=== PATIENT | male | born 1990 | race Caucasian/White ===

== ENCOUNTER 2017-10-27 18:25 | Inpatient (IN) | payer OTHER ==
[~2017-10-27] VITALS: Ht 167.6 cm; Wt 77.1 kg
--- NOTE | 2017-10-27 18:48 | ED SKIN/ALLERGY COMPLAINT ---
History of Present Illness General Chief Complaint: Skin Rash/ Abcess Stated Complaint: ABSCESS ON ARM Source: patient Exam Limitations: no limitations Vital Signs & Intake/Output Vital Signs & Intake/Output Vital Signs Date Time Temp Pulse Resp B/P B/P Pulse O2 O2 Flow FiO2 Mean Ox Delivery Rate 10/27 2106 Room Air 10/27 1836 98.8 102 15 138/79 98 Room Air Room Air Allergies Coded Allergies: No Known Allergies (10/27/17) Reconcile Medications Methadone HCl (Methadose) 10 MG/ML ORAL.CONC 90 MG PO DAILY MENTAL HEALTH ( Reported) Triage Note: PT TO ED FOR C/C OF R ARM ABCESS. PT REPORTS HE USED IV HEROIN LAST WEEK. WENT TO THE WALK IN AND STARTED ON PO BACTRIM 2 DAYS AGO. PT'S R ARM VERY RED, HOT, SWOLLEN WITH NOTICEABLE ABCESS WITH REDNESS AND INDURATION IN TRIAGE. AFEBRILE, DENIES FEVERS AT HOME. WOULD NOT LIKE VISITORS TO KNOW WHY PT IS HERE. Triage Nurses Notes Reviewed? yes Onset: Abrupt Duration: day(s):, constant Timing: recent history Severity: moderate, severe No Modifying Factors: none HPI: 27-year-old male comes into the emergency room for further evaluation of pain and swelling to his right elbow. Patient reports that he does inject IV drugs. He did inject recently over this area. Denies any chances of foreign body with needle. He reports it started off as a small bump and then got progressively larger and more swollen. He was seen at walk-in clinic and started on Bactrim. He reports that the swelling is just continuing to increase and he cannot bend his elbow. Denies any fever or vomiting. Denies any other associated symptoms. (Ancelmo Haji) Past History Travel History Traveled to [place] past 21 day No Medical History Any Pertinent Medical History? see below for history Neurological: NONE EENT: NONE Cardiovascular: NONE Respiratory: NONE Gastrointestinal: NONE Hepatic: NONE Renal: NONE Musculoskeletal: NONE Psychiatric: NONE Endocrine: NONE Blood Disorders: NONE Cancer(s): NONE MISSILEMAN/Reproductive: NONE Surgical History Surgical History: non-contributory Psychosocial History What is your primary language Frisian Tobacco Use: Current Daily Use Daily Tobacco Use Amount/Type: => 5 Cigarettes daily ETOH Use: denies use Illicit Drug Use: denies illicit drug use Family History Hx Contributory? No (Ancelmo Haji) Review of Systems Review of Systems Constitutional: Reports: no symptoms. EENTM: Reports: no symptoms. Respiratory: Reports: no symptoms. Cardiovascular: Reports: no symptoms. GI: Reports: no symptoms. Genitourinary: Reports: no symptoms. Musculoskeletal: Reports: no symptoms. Skin: Reports: see HPI. Neurological/Psychological: Reports: no symptoms. Hematologic/Endocrine: Reports: no symptoms. Immunologic/Allergic: Reports: no symptoms. All Other Systems: Reviewed and Negative (Ancelmo Haji) Physical Exam Physical Exam General Appearance: well developed/nourished, mild distress Head: atraumatic Eyes: Bilateral: normal appearance. Ears, Nose, Throat: normal ENT inspection, hearing grossly normal Neck: normal inspection Respiratory: no respiratory distress Back: normal inspection Extremities: normal inspection, normal range of motion, no edema Neurologic/Psych: awake, alert, oriented x 3, normal mood/affect Skin: intact Skin Problem Location: upper extremities Skin Problem Character: fluctuance and swelling to right antecubital fossa, warmth, large surrounding area of erythema and warmth, extending up arm and down arm, induration, severe limited range of motion, radial pulses 2+, (Ancelmo Haji) Progress Differential Diagnosis: abscess/cellulitis, septic joint, foreign body, sepsis, Plan of Care: Orders Procedure Date/time Status Regular Diet 10/28 B Active URINE DRUGS OF ABUSE 10/27 2149 Active ED Holding Orders 10/27 2123 Active Admit to inpatient 10/27 2123 Active Vital Signs 10/27 2123 Active Code Status 10/27 2123 Active EXTREMETIES CULTURE 10/27 2027 Active BLOOD CULTURE 10/27 1911 Active LACTIC ACID 10/27 1911 Complete C-REACTIVE PROTEIN 10/27 1911 Complete COMPREHENSIVE METABOLIC PANEL 10/27 1911 Complete CBC WITHOUT DIFFERENTIAL 10/27 1911 Complete Current Medications Sig/Rory Start time Last Medication Dose Stop Time Status Admin Sodium Chloride 1,000 ML BOLUS ONE 10/27 2129 AC (Normal Saline 0.9%) 10/27 2228 Laboratory Tests 10/27/171942: Anion Gap 14, Estimated GFR > 60, BUN/Creatinine Ratio 14.0, Glucose 103 H, Lactic Acid 0.8, Calcium 9.3, Total Bilirubin 0.2, AST 19, ALT 29, Alkaline Phosphatase 82, C-Reactive Prot, Quant > 9.0 H, Total Protein 7.6, Albumin 4.4, Globulin 3.2, Albumin/Globulin Ratio 1.4, CBC w Diff NO MAN DIFF REQ, RBC 4.38 L, MCV 90.0, MCH 29.5, MCHC 32.8 L, RDW 13.7, MPV 7.9, Gran % 83.0 H, Lymphocytes % 10.4 L, Monocytes % 5.8, Eosinophils % 0.8, Basophils % 0, Absolute Granulocytes 11.3 H, Absolute Lymphocytes 1.4, Absolute Monocytes 0.8 H, Absolute Eosinophils 0.1, Absolute Basophils 0 Microbiology 10/27 2029 EXTREMITIE: Culture & Sensitivity - RECD 10/27 2029 EXTREMITIE: Gram Stain - RECD 10/27 1952 BLOOD: Blood Culture - RECD 10/27 1942 BLOOD: Blood Culture - RECD Diagnostic Imaging: Viewed by Me: Radiology Read. Discussed w/RAD: Radiology Read. Radiology Impression: PATIENT: DUDLEY FORTUNE PRESENT AGE: 27 PATIENT ACCOUNT NO: [id number] : 91 LOCATION: [facility] ORDERING PHYSICIAN: Ancelmo JONES SERVICE DATE: 10/27/17 EXAM TYPE : RAD - XRY-ELBOW 3 OR MORE VIEWS, R EXAMINATION: XR ELBOW, RIGHT CLINICAL INFORMATION: Assess for foreign body right arm. Drug use. COMPARISON: None TECHNIQUE: 4 plain film views of the right elbow. FINDINGS: There is diffuse soft tissue swelling about the right elbow. I do not appreciate any significant joint effusion however. No radiopaque foreign body seen. No acute fracture or dislocation. No bony destructive lesions. IMPRESSION: Diffuse soft tissue swelling but no acute bony abnormality or joint effusion. DICTATED BY: Dudley Mullins MD DATE/TIME DICTATED:10/27/171955 DUST BOX WORKER: SHANTI DATE/TIME TRANSCRIBED:10/27/171955 CONFIDENTIAL, DO NOT COPY WITHOUT APPROPRIATE AUTHORIZATION. <Electronically signed in Other Vendor System> SIGNED BY: Dudley Howard MD 10/27/172000 (Tomi JONES,Ancelmo) Departure Departure Disposition: STILL A PATIENT Condition: Stable Clinical Impression Primary Impression: Cellulitis and abscess of upper arm and forearm Referrals: Corina VAZQUEZ,Noe [place] (PCP/Family) Departure Forms: Customer Survey General Discharge Information Admission Note Spoke With: Lenard VAZQUEZ,Anjelica Documentation of Exam: Documentation of any treatments & extenuating circumstances including Concerns Regarding Discharge (functional status, medication knowledge or non-compliance, living conditions, etc.) that warrant an admission rather than observation: Patient has failed outpatient treatment with oral antibiotics. Patient will require IV antibiotics. Wound care. Surgical consultation. Patient may require possible further drainage of abscess in operating room. High risk. Medically not safe for discharge. spoke with dr pardo who will consult tomorrow. (Ancelmo Haji) PA/DEPENDENCY DIRECTOR Co-Sign Statement Statement: ED Attending supervision documentation- [X] I saw and evaluated the patient. I have also reviewed all the pertinent lab results and diagnostic results. I agree with the findings and the plan of care as documented in the PA's/DEPENDENCY DIRECTOR's documentation. [X] I have reviewed the ED Record and agree with the PA's/DEPENDENCY DIRECTOR's documentation. [] Additions or exceptions (if any) to the PAs/DEPENDENCY DIRECTOR's note and plan are summarized below: [IVDA WITH ABSCESS AND CELLULITIS, HAS FAILED ORAL ANTIBIOTICS, ABSCESS I&D'D, IV ABX., ID CONSULT] (Eric VAZQUEZ,Michel Melgar) Procedures Incision and Drainage Site: right antecubital fossa Blade Size: 15 I & D Procedure: Yes: betadine prep, sterile drapes applied, sterile dressing applied, wick placed. Progress: Approximately 15-20 mL of purulent discharge, culture obtained, (Ancelmo Haji)
[2017-10-27 19:53] LABS: ABSOLUTE BASOPHIL COUNT 0 /CUMM (0.0-0.2); ABSOLUTE EOSINOPHIL COUNT 0.1 /CUMM (0.0-0.7); ABSOLUTE GRANULOCYTE CT 11.3 /CUMM (1.4-6.5); ABSOLUTE LYMPH COUNT 1.4 /CUMM (1.2-3.4); ABSOLUTE MONOCYTE COUNT 0.8 /CUMM (0.10-0.60); BASOPHIL % 0 % (0.0-2.0); EOSINOPHIL % 0.8 % (0-5); HEMATOCRIT 39.4 % (42-52); MEAN CORPUSCULAR HGB 29.5 PG (27.0-31.0); MEAN CORPUSCULAR HGB CONC 32.8 G/DL (33.0-37.0); MEAN PLATELET VOLUME 7.9 FL (7.4-10.4); PLATELET COUNT 257 /CUMM (130-400); RBC DISTRIBUTION WIDTH 13.7 % (11.5-14.5); RED BLOOD CELL CT 4.38 /CUMM (4.70-6.10); WHITE BLOOD CELL COUNT 13.7 /CUMM (4.8-10.8)
--- NOTE | 2017-10-27 20:01 | RADIOLOGY REPORT ---
EXAMINATION: XR ELBOW, RIGHT CLINICAL INFORMATION: Assess for foreign body right arm. Drug use. COMPARISON: None TECHNIQUE: 4 plain film views of the right elbow. FINDINGS: There is diffuse soft tissue swelling about the right elbow. I do not appreciate any significant joint effusion however. No radiopaque foreign body seen. No acute fracture or dislocation. No bony destructive lesions. IMPRESSION: Diffuse soft tissue swelling but no acute bony abnormality or joint effusion.
[2017-10-27] MEDS ORDERED: METHADOSE10 MG/1 ML PO (20:05)
--- NOTE | 2017-10-27 22:33 | History & Physical ---
Abhishek VAZQUEZ,[facility] 10/27/17 2233: General Information and HPI MD Statement: I have seen and personally examined NICKI FORTUNE and documented this H&P. The patient is a 27 year old M who presented with a patient stated chief complaint of [left arm swelling and redness]. Source of Information: patient Exam Limitations: no limitations History of Present Illness: The patient is a 27-year-old male with past medical history of IV drug abuse and opiate dependence. [facility]27 with complaint of right arm swelling redness and pain The patient was in usual state of health until when he injected heroin in the right arm. On Wednesday a small bump developed at the site of injection. Ever since then the bump has been becoming bigger, red and painful. Patient reports burning kind of pain. Yesterday patient visited urgent care at [facility] and was prescribed Bactrim. He is coming today without any relief, reports worsening of swelling and edema and pain. Denies fevers and chills The patient has been using IV heroin for past 5 years he quit for 2 years and restarted past 2 months. He uses heroin 2 times a week. He is right-handed and usually uses left-sided for injection. It is the first time he has used his right arm. Reports no infection in the past, denies MRSA history however the past pathology report in [facility] is positive for MRSA in extremity? culture. Patient reports taking methadone 90mg from [facility] for past 4 months. Denies cocaine PCP and marijuana use. Allergies/Medications Allergies: Coded Allergies: No Known Allergies (10/27/17) Home Med list Methadone HCl (Methadose) 10 MG/ML ORAL.CONC 90 MG PO DAILY MENTAL HEALTH ( Reported) Past History Travel History Traveled to [place] past 21 day No Medical History Neurological: NONE EENT: NONE Cardiovascular: NONE Respiratory: NONE Gastrointestinal: NONE Hepatic: NONE Renal: NONE Musculoskeletal: NONE Psychiatric: NONE Endocrine: NONE Blood Disorders: NONE Cancer(s): NONE LEGISLATIVE CORRESPONDENT/Reproductive: NONE Other Medical Hx: IV drug use opiate dependence Surgical History Surgical History: non-contributory Past Family/Social History Family History Relations & Conditions if any FATHER (DM). Psychosocial History Where do you live? Home Who Do You Live With? parent Services at Home: None Primary Language: Kiswahili Smoking Status: Current Some Day Smoker ETOH Use: occasional use Illicit Drug Use: heroin Functional Ability ADLs Independent: dressing, eating, toileting, bathing. Ambulation: independent IADLs Independent: shopping, housework, finances, food prep, telephone, transportation , medication admin. 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 Denies: chills. Cardiovascular: Reports: no symptoms. Respiratory: Reports: no symptoms. GI: Reports: no symptoms. Genitourinary: Reports: no symptoms. Musculoskeletal: Reports: no symptoms. Exam & Diagnostic Data Last 24 Hrs of Vital Signs/I&O Vital Signs Date Time Temp Pulse Resp B/P B/P Pulse O2 O2 Flow FiO2 Mean Ox Delivery Rate 10/28 0024 97.2 82 18 124/66 98 Room Air 10/27 2107 Room Air 10/27 1950 98.5 91 18 128/80 98 Room Air 10/27 1837 98.8 102 15 138/79 98 Room Air Room Air Intake & Output 10/28 0800 10/28 0000 10/27 1600 Intake Total 0 Output Total Balance 0 Intake, Oral 0 Patient 170 lb Weight Weight Reported by Patient Measurement Method Physical Exam General Appearance Alert, Oriented X3, Cooperative, No Acute Distress HEENT Atraumatic, PERRLA, EOMI, Mucous Membr. moist/pink Neck Supple, No JVD, No thryomegaly Cardiovascular Normal S1, Normal S2, No Murmurs, Gallops, Rubs Lungs Clear to Auscultation, Normal Air Movement Abdomen Normal Bowel Sounds, Soft, No Tenderness, No Hepatospenomegaly Neurological Normal Speech, Strength at 5/5 X4 Ext, Normal Tone, Sensation Intact, Cranial Nerves 3-12 NL, Reflexes 2+ Extremities R anterior cubital fossa wrapped in bandage, On remoaval erythematous, edematous,warm, indurated, fluctuant swelling, s/p I&D packing in place with surrounding erythema extending above and below the abcess, ROM limited due to pain Vascular Normal Pulses, Pulses Symmetrical Last 24 Hrs of Labs/Brando: Laboratory Tests 10/27/178: Urine Opiates Screen > 4000.00 H, Methadone Screen > 735 H, Barbiturate Screen < 60, Ur Phencyclidine Scrn < 6.00, Amphetamines Screen < 100, U Benzodiazepines Scrn < 85, Urine Cocaine Screen < 50, Urine Cannabis Screen < 5.00 10/27/172211: Lactic Acid Cancelled 10/27/171942: Anion Gap 14, Estimated GFR > 60, BUN/Creatinine Ratio 14.0, Glucose 103 H, Lactic Acid 0.8, Calcium 9.3, Total Bilirubin 0.2, AST 19, ALT 29, Alkaline Phosphatase 82, C-Reactive Prot, Quant > 9.0 H, Total Protein 7.6, Albumin 4.4, Globulin 3.2, Albumin/Globulin Ratio 1.4, CBC w Diff NO MAN DIFF REQ, RBC 4.38 L, MCV 90.0, MCH 29.5, MCHC 32.8 L, RDW 13.7, MPV 7.9, Gran % 83.0 H, Lymphocytes % 10.4 L, Monocytes % 5.8, Eosinophils % 0.8, Basophils % 0, Absolute Granulocytes 11.3 H, Absolute Lymphocytes 1.4, Absolute Monocytes 0.8 H, Absolute Eosinophils 0.1, Absolute Basophils 0, Hepatitis A IgM Ab Pending, Hep Bs Antigen Pending, Hep B Core IgM Ab Conf Pending, Hepatitis C Antibody Pending, HIV 1&2 Ab Western Blot Pending Microbiology 10/27 2029 EXTREMITIE: Culture & Sensitivity - RECD 10/27 2029 EXTREMITIE: Gram Stain - RECD 10/27 1952 BLOOD: Blood Culture - RECD 10/27 1942 BLOOD: Blood Culture - RECD Diagnostic Data Other Results Right elbow x-ray Diffuse soft tissue swelling but no acute bony abnormality or joint effusion. Assessment/Plan Assessment: The patient is a 27-year-old male with past medical history of IV drug abuse and opiate dependence. [facility] with complaint of right arm swelling redness and pain after IV heroin inj in that arm -VS HR 102 rest WNL -Pertinent labs WBC count 13.7, H&H 12.9/39.4, CRP >9. U tox positive for opiates and methadone. -Imaging findings dictated above -In ED patient underwent incision and drainage and 15-20 mL of purulent discharge was drained and sent for cultures. He also received 1 L of normal saline at 1 dose of vancomycin. Blood cultures were also drawn. -Patient is being admitted to general medicine floor and is being evaluated and treated for following conditions # Sepsis 2/2 to Right arm/forearm cellulitis with abscess over ante-cubital fossa Patient is presenting with abscess status post I&D in ED after IV heroin injection. He has surrounding erythema that is extending above and below the abscess area. We are going to treat him for Purulent cellulitis. He meets the SIRS criteria with elevated heart rate and elevated white blood cell count -Monitor fever and WBC curve -IVF -Follow blood cultures and culture of purulent discharge from I and D -Continue vancomycin in context with previous MRSA history -We are going to add Unasyn for anaerobes and gram negative coverage -Jovanna antibiotics as per sensitivities -Surgical consult in the morning Dr. Thomas was called from the ED -Right upper extremity U/S rule out DVT or superficial thrombophlebitis #IV drug abuse and opiate dependence. -Confirm methadone dose from [facility] in the morning -Counseling regarding IV drug abuse -Consider TTE with blood cultures positive -Check HIV and hepatitis panel -Social work consult? -Pain management with non-narcotics #FC/DVT prophylaxis with Lovenox/regular diet As Ranked By This Provider Problem List: 1. Cellulitis and abscess of upper arm and forearm Core Measures/Misc (06/20) Acute Coronary Syndrome ACS Diagnosis: No Congestive Heart Failure Congestive Heart Failure Diagnosis No Cerebrovascular Accident CVA/TIA Diagnosis: No VTE (View Protocol) VTE Risk Factors Other No Mechanical VTE Prophylaxis d/t N/A MechProphylax Ordered No VTE Pharm Prophylaxis d/t NA PharmProphylax ordered Sepsis (View protocol) Sepsis Present: No ShaneBharat 10/28/17 0054: Resident Review Statement Resident Statement: discussed with internal control manager Other Findings: 27-year-old man with past medical history of IV drug use, opiate dependence on methadone presented to ER with complaint of right elbow pain, swelling and redness that started 6 days ago. According to patient he has restarted IV drug use about 2 and half months ago and normally uses his left arm. He never had any infection at the site of injection in past. He injected heroin in his right arm 7 days ago and asked day he noticed a small bump at the site of injection. Swelling and redness progressively got worse. He went to an urgent care yesterday where he was started on Bactrim. He took only 2 doses with his pain and swelling was getting worse so he came into ER today. He denies any fever, chills. Other review of systems negative. He smokes 1 pack of cigarettes in 3- 4 days. Denies drinking alcohol. He was started on methadone 4 months ago and goes in methadone clinic in [place]. Denies other illicit drug use. Vitals on admission: Temperature 98.8, pulse 102, respiratory rate 15, blood pressure 138/79 oxygen saturation 98% on room air. Pertinent physical exam findings: Right elbow is swollen and erythematous. Tender to touch. Range of motion restricted due to pain. Pulses palpable. Motor strength and sensation to soft touch normal. Pertinent labs: WBC count 13.7, H&H 12.9/39.4, CRP >9. U tox positive for opiates and methadone. Right elbow x-ray showed diffuse soft tissue swelling but no acute bony abnormality or joint effusion. In ER he was given 1 L normal saline bolus, vancomycin 1. Right elbow I&D was done in ER and 15-20 mL of purulent discharge was drained. Assessment and plan 27-year-old man with past medical history of IV drug use, opiate dependence on methadone is going to be admitted on general medicine floor for cellulitis/ abscess of right antecubital fossa secondary to IV drug use. We will monitor vitals closely. We will continue vancomycin and start him on Unasyn for now. Follow-up blood cultures 2 and Ext cultures. IV hydration. Continue methadone and conform dose from methadone clinic in [place] clinic in am. Will check HIV and hepatitis panel. Consider Surgery consult in am. Pain management pathway. DVT prophylaxis. Full code Lenard VAZQUEZ, [facility] 10/28/17 0303: Attending MD Review Statement Attending Statement Attending MD Statement: examined this patient, discuss w/resident/PA/MELT HOUSE DRAG OPERATOR, agreed w/resident/PA/MELT HOUSE DRAG OPERATOR, reviewed images, amended to note Attending Assessment/Plan: 27 yo M who is an IV heroin user for over 5 years, recently started methadone maintenance program ([facility], [place]) but relapsed to using IV heroin 2 months back is here for evaluation of right arm/forearm swelling and pain. Patient reports using IV heroin (5 bags) 1 week back to his right arm (ante- cubital fossa). 2 days later he noticed pain and swelling which gradually progressed with surrounding erythema. He was seen at a [facility] and prescribed Bactrim for 2 doses. His symptoms got worse, so he came to the ER. He is a current smoker. He reports being checked for HIV and hepatitis in the past 3 yrs. I and D was done in the ER with drainage about 15-20 cc of purulent discharge. Vitals are stable. Exam: Right upper extremity incised site just above the ante-cubital fossa, packing in situ. Diffuse surrounding erythema, warmth and swelling+ extending circumferentially over arm/forearm. Peripheral pulses well felt. ROM limited due to swelling and pain. Heart S1S2 regular, no murmurs. Labs: WBC 13.7, H/H 12.9/39.4, lactic acid 0.8, CRP > 9.0, Utox positive for opiates and methadone. Right elbow x-ray: diffuse soft tissue swelling but no acute bony abnormality or joint effusion. Assessment and plan: 1. Sepsis 2. Right arm/forearm cellulitis with abscess over ante-cubital fossa 3. Status post I and D in the ER 4. Failed outpatient therapy 5. IV drug user 6. Opiate dependence on methadone - Admit to general medicine - Blood cultures x 2 - Follow cultures of the purulent discharge from I and D - Elevate right upper extremity - Frequent neurovascular checks - IV Unasyn and Vancomycin for now - Taper antibiotics based on cultures - Surgery (Dr. Thomas) to consult in AM - Obtain right upper extremity soft tissue ultrasound to assess extent of abscess - Obtain right upper extremity doppler to assess for DVT or superficial thrombophlebitis - IV fluids, trend lactic acid - Resume methadone 90 mg after confirming dose with Apt - Check HIV and hepatitis panel - Pain management with methadone and motrin - Smoking cessation counseling, nicotine patch. DVT ppx Lovenox. Full code.
--- NOTE | 2017-10-27 23:36 | Admission Certification ---
Admission Certification Certification Statement - As attending physician, I certify that at the time of - admission, based on clinical presentation, severity of - symptoms, need for further diagnostic testing and - therapeutic interventions, and risk of adverse outcomes - without in-hospital treatment, in my clinical assessment, - this patient requires an acute hospital stay for a minimum - of two nights or longer. I have also considered psychsocial - factors such as support system, advanced age, financial - issues, cognitive issues, and failed out-patient treatments, - past re-admission history, safety of patient, and lack of - compliance as applicable. Specific rationale supporting this admission is: Sepsis, right arm/forearm cellulitis with abscess, IV drug user. Failed outpatient therapy.
[2017-10-28 06:15] VITALS: BP 116/63
[2017-10-28 06:17] LABS: ABSOLUTE BASOPHIL COUNT 0 /CUMM (0.0-0.2); ABSOLUTE EOSINOPHIL COUNT 0.2 /CUMM (0.0-0.7); ABSOLUTE GRANULOCYTE CT 8.7 /CUMM (1.4-6.5); ABSOLUTE LYMPH COUNT 1.6 /CUMM (1.2-3.4); ABSOLUTE MONOCYTE COUNT 0.8 /CUMM (0.10-0.60); BASOPHIL % 0.4 % (0.0-2.0); EOSINOPHIL % 1.8 % (0-5); GRANULOCYTE % 76.1 % (42.2-75.2); HEMATOCRIT 35.3 % (42-52); MEAN CORPUSCULAR HGB 30.5 PG (27.0-31.0); MEAN CORPUSCULAR HGB CONC 33.7 G/DL (33.0-37.0); MEAN CORPUSCULAR VOLUME 90.4 FL (80.0-94.0); MEAN PLATELET VOLUME 7.9 FL (7.4-10.4); PLATELET COUNT 217 /CUMM (130-400); RBC DISTRIBUTION WIDTH 13.7 % (11.5-14.5); WHITE BLOOD CELL COUNT 11.4 /CUMM (4.8-10.8)
--- NOTE | 2017-10-28 09:43 | ULTRASOUND REPORT ---
EXAMINATION: RIGHT UPPER EXTREMITY VENOUS DOPPLER ULTRASOUND US SUPERFICIAL IMAGING, EXTREMITY, RIGHT CLINICAL INFORMATION: Right upper extremity soft tissue ultrasound to assess extent of abscess. Right antecubital fossa abscess status post incision and drainage. Patient states abscess secondary to drug abuse. Swelling, redness of the right upper extremity. Rule out DVT or superficial thrombophlebitis. COMPARISON: Plain films of the right elbow dated 10/27/2017. TECHNIQUE: Doppler spectral analysis and color flow Doppler imaging was performed of the right upper extremity. Compression and augmentation maneuvers were performed. FINDINGS: The right internal jugular vein, proximal brachiocephalic vein, subclavian vein and axillary veins are all patent with normal color flow and phasic changes seen. The paired brachial veins are also patent with normal color flow and compressibility seen. The basilic vein is patent with normal compressibility and color flow demonstrated. The cephalic vein is not visualized. The proximal radial and ulnar veins are not evaluated. Just above the elbow in region of and surrounding the patient's open wound, extensive edema and thickening of the skin and the underlying deeper soft tissues is seen, consistent with cellulitis. The open wound is filled with packing material and additional deep soft tissue fluid collection/abscess collection is seen. On some of the images, a small tubular branching area is being outlined with calipers and found on real-time scanning with color Doppler imaging to represent superficial mildly distended veins. IMPRESSION: 1. No evidence of deep venous thrombosis in the right upper extremity. 2. The cephalic vein is not visualized. Remainder of the superficial veins in the upper right arm are patent. Forearm veins were not studied. 3. Open wound filled with packing is seen just above the elbow in the antecubital fossa region with surrounding prominent soft tissue edema and skin thickening, consistent with surrounding cellulitis. No additional undrained fluid collection is seen.
[2017-10-28 12:13] VITALS: BP 123/74
--- NOTE | 2017-10-28 12:33 | PN- Housestaff ---
Juana Madrid MD 10/28/17 1233: Subjective Follow-up For: abscess on arm secondary to IVDA Subjective: Patient notes less pain in the arm. He had I&D LAST NIGHT IN THE ED. Tolerated procedure well. Denies subjective fever or chills, sob, chest pain. Review of Systems Constitutional: Reports: no symptoms. EENTM: Reports: no symptoms. Cardiovascular: Reports: no symptoms. Respiratory: Reports: no symptoms. Gastrointestinal: Reports: no symptoms. Genitourinary: Reports: no symptoms. Musculoskeletal: Reports: muscle pain. Skin: Reports: lesions. Objective Last 24 Hrs of Vital Signs/I&O Vital Signs Date Time Temp Pulse Resp B/P B/P Pulse O2 O2 Flow FiO2 Mean Ox Delivery Rate 10/28 1213 98.7 84 18 123/74 98 Room Air 10/28 0615 97.1 77 18 116/63 100 Room Air 10/28 0608 97.1 77 18 116/63 97 Room Air 10/28 0024 97.2 82 18 124/66 98 Room Air 10/27 2107 Room Air 10/27 1950 98.5 91 18 128/80 98 Room Air 10/27 1837 98.8 102 15 138/79 98 Room Air Room Air Intake & Output 10/28 1600 10/28 0800 10/28 0000 Intake Total 1040 400 0 Output Total 500 Balance 540 400 0 Intake, IV 800 400 Intake, Oral 240 0 Output, Urine 500 Patient 170 lb 170 lb Weight Weight Reported by Patient Reported by Patient Measurement Method Physical Exam General Appearance: Alert, Oriented X3, Cooperative, No Acute Distress Skin: right anterior cubital fossa erythema, rubor, packed with gauze from drainage. limited rom due to pain. pulses symmetric and palpable. Skin Temp/Moisture Exam: Warm/Dry Sepsis Skin Exam (color): Normal for Ethnicity HEENT: Atraumatic, PERRLA, EOMI Cardiovascular: Regular Rate, Normal S1, Normal S2, No Murmurs Lungs: Clear to Auscultation, Normal Air Movement Abdomen: Normal Bowel Sounds, Soft, No Tenderness, No Hepatospenomegaly Neurological: Normal Speech Extremities: No Clubbing, No Cyanosis, Normal Pulses Vascular: Normal Pulses, Pulses Symmetrical Current Medications: Current Medications Sig/Rory Start time Last Medication Dose Route Stop Time Status Admin Acetaminophen 0 .STK-MED ONE 10/27 2246 DC PO Acetaminophen 650 MG Q8P PRN 10/27 2245 DCD 10/27 PO 2243 Ampicillin Sodium/ 0 .STK-MED ONE 10/28 0601 DC Sulbactam Sodium .ROUTE Ampicillin Sodium/ 0 .STK-MED ONE 10/28 0025 DC Sulbactam Sodium .ROUTE Ampicillin Sodium/ 3,000 MG Q6 10/28 0015 DCD 10/28 Sulbactam Sodium IV 1200 Sodium Chloride 100 ML Enoxaparin Sodium 40 MG DAILY 10/28 1000 DCD 10/28 SC 0910 Enoxaparin Sodium 0 .STK-MED ONE 10/28 0918 DC SC Ibuprofen 800 MG Q6P PRN 10/28 0015 DCD PO Lidocaine 0 .STK-MED ONE 10/27 1956 DC .ROUTE Methadone HCl 90 MG DAILY 10/28 1000 DCD 10/28 PO 0910 Methadone HCl 0 .STK-MED ONE 10/28 0909 DC PO Sodium Chloride 1,000 ML Q10H 10/28 0015 DCD 10/28 IV 10/28 Sodium Chloride 1,000 ML BOLUS ONE 10/270 DC 10/27 IV 10/27 222 2214 Vancomycin HCl 1,000 MG ONCE ONE 10/28 2100 DCD Dextrose/Water 250 ML IV 10/28 2159 Vancomycin HCl 1,000 MG ONCE ONE 10/28 0900 DC Dextrose/Water 250 ML IV 10/28 0959 Vancomycin HCl 1,000 MG ONCE ONE 10/27 2030 DC 10/27 Dextrose/Water 250 ML IV 10/27 2129 2100 Last 24 Hrs of Lab/Brando Results Last 24 Hrs of Labs/Mics: Laboratory Tests 10/28/17 0605: CBC w Diff NO MAN DIFF REQ, RBC 3.90 L, MCV 90.4, MCH 30.5, MCHC 33.7, RDW 13.7 , MPV 7.9, Gran % 76.1 H, Lymphocytes % 14.4 L, Monocytes % 7.3, Eosinophils % 1.8, Basophils % 0.4, Absolute Granulocytes 8.7 H, Absolute Lymphocytes 1.6, Absolute Monocytes 0.8 H, Absolute Eosinophils 0.2, Absolute Basophils 0 10/28/17 0332: Lactic Acid < 0.5 L 10/27/17 2238: Urine Opiates Screen > 4000.00 H, Methadone Screen > 735 H, Barbiturate Screen < 60, Ur Phencyclidine Scrn < 6.00, Amphetamines Screen < 100, U Benzodiazepines Scrn < 85, Urine Cocaine Screen < 50, Urine Cannabis Screen < 5.00 10/27/172211: Lactic Acid Cancelled 10/27/171942: Anion Gap 14, Estimated GFR > 60, BUN/Creatinine Ratio 14.0, Glucose 103 H, Lactic Acid 0.8, Calcium 9.3, Total Bilirubin 0.2, AST 19, ALT 29, Alkaline Phosphatase 82, C-Reactive Prot, Quant > 9.0 H, Total Protein 7.6, Albumin 4.4, Globulin 3.2, Albumin/Globulin Ratio 1.4, CBC w Diff NO MAN DIFF REQ, RBC 4.38 L, MCV 90.0, MCH 29.5, MCHC 32.8 L, RDW 13.7, MPV 7.9, Gran % 83.0 H, Lymphocytes % 10.4 L, Monocytes % 5.8, Eosinophils % 0.8, Basophils % 0, Absolute Granulocytes 11.3 H, Absolute Lymphocytes 1.4, Absolute Monocytes 0.8 H, Absolute Eosinophils 0.1, Absolute Basophils 0, Hepatitis A IgM Ab NONREACTIVE, Hep Bs Antigen NONREACTIVE, Hep B Core IgM Ab Conf NONREACTIVE, Hepatitis C Antibody NONREACTIVE, HIV 1&2 Ab Western Blot NONREACTIVE Microbiology 10/27 2029 EXTREMITIE: Culture & Sensitivity - RES 10/27 2029 EXTREMITIE: Gram Stain - RES 10/27 1952 BLOOD: Blood Culture - RES 10/27 1942 BLOOD: Blood Culture - RES Assessment/Plan Assessment: The patient is a 27-year-old male with past medical history of IV drug abuse and opiate dependence. He presented to [facility] on 10/27 with complaint of right arm swelling redness and pain after IV heroin inj in that arm -VS HR 102 rest WNL -Pertinent labs WBC count 13.7, H&H 12.9/39.4, CRP >9. U tox positive for opiates and methadone. -Imaging: xray showed diffuse soft tissue swelling and popliteal fossa US and doppler showed no DVT but evidence of cellulitis with soft tissue swelling and thickening with edema. -In ED patient underwent incision and drainage and 15-20 mL of purulent discharge was drained and sent for cultures. He also received 1 L of normal saline at 1 dose of vancomycin. Blood cultures were also drawn. -Patient is admitted to general medicine floor and is being evaluated and treated for following conditions # Sepsis 2/2 to Right arm/forearm cellulitis with abscess over ante-cubital fossa Patient is presenting with abscess status post I&D in ED after IV heroin injection. He has surrounding erythema that is extending above and below the abscess area. We are going to treat him for Purulent cellulitis. He meets the SIRS criteria with elevated heart rate and elevated white blood cell count -Monitor fever and WBC curve -Follow blood cultures and culture of purulent discharge from I and D -Continue vancomycin 1g daily in context with previous MRSA history -We added Unasyn 3mg q6h for anaerobes and gram negative coverage -Jovanna antibiotics as per sensitivities when they come -Surgical consult with Dr. Thomas OF THIS AFTERNOON HE HAS SEEN THE PATIENT AND ACCORDING TO PATIENT AND NURSE OFFERED NO SURGICAL INTERVENTION, HAS NOT YET LEFT A NOTE IN TIME PATIENT HAS LEFT AMA AT 2:30 PM. -Right upper extremity U/S RULED out DVT/superficial thrombophlebitis #IV drug abuse and opiate dependence. -CONFIRMED methadone dose from [facility] 90MG -Counseling regarding IV drug abuse -Consider TTE IF blood cultures positive -NEGATIVE HIV and hepatitis panel -Pain management with non-narcotics #AFTER HEARING THAT THERE WOULD BE NO SURGICAL INTERVENTION PATIENT SIGNED OUT AMA AT 2:30 PM EVEN AFTER WE TOLD HIM HE WOULD REQUIRE IV ABX. HE REFUSED WAITING FOR US TO PREPARE PO ANTIBIOTIC PRESCRIPTION. HE WILL RETURN IF ISSUES WORSEN WITH ARM. #FC/DVT prophylaxis with Lovenox/regular diet Problem List: 1. Substance abuse 2. Cellulitis and abscess of upper arm and forearm Pain Ratin Pain Location: right anterior cubital fossa Pain Goal: Pain 4 or less Pain Plan: pathway Tomorrow's Labs & Rationales: none, patient left ama Sofie Sanches 10/28/17 1402: Attending MD Review Statement Attending Statement Attending MD Statement: examined this patient, discuss w/resident/PA/SPONGE FISHERMAN, agreed w/resident/PA/SPONGE FISHERMAN, discussed with family, reviewed EMR data (avail), discussed with nursing, discussed with case mgmt, reviewed images, amended to note Attending Assessment/Plan: Assessment and plan 1. Sepsis 2. Right arm/forearm cellulitis with abscess over ante-cubital fossa 3. Status post I and D in the ER 4. Failed outpatient therapy 5. IV drug user 6. Opiate dependence on methadone - Admit to general medicine - Blood cultures x 2 - Follow cultures of the purulent discharge from I and D - Elevate right upper extremity - Frequent neurovascular checks - IV Unasyn and Vancomycin for now - Taper antibiotics based on cultures - Surgery (Dr. Thomas) consulted. - Resume methadone 90 mg after confirming dose with Apt - f/u labs - Pain management with methadone and motrin - Smoking cessation counseling, nicotine patch. DVT ppx Lovenox. Full code. I spoke to patient at length about current management plan. he verbalsies the understanding. Patient wants to leave A and would continue taking his anitbiotics as outpatient. I also told him to call for his wound culture results.
--- NOTE | 2017-10-28 13:05 | Cons- General Surgery ---
General Information and HPI Consulting Request Date of Consult: 10/28/17 Requested By: Myron VAZQUEZ,Sofie Reason for Consult: abscess History of Present Illness: Patient presents with antecubital fossa abscess from intravenous drug abuse. Incision and drainage of an abscess in the right side was performed by ER staff. I was consulted for wound management. Patient feels much better with reduction in the swelling. Allergies/Medications Allergies: Coded Allergies: No Known Allergies (10/27/17) Home Med List: No Known Home Medications Current Medications: Current Medications Sig/Rory Start time Last Medication Dose Route Stop Time Status Admin Acetaminophen 0 .STK-MED ONE 10/27 2245 DC PO Acetaminophen 650 MG Q8P PRN 10/27 2245 AC 10/27 PO 2243 Ampicillin Sodium/ 0 .STK-MED ONE 10/28 0601 DC Sulbactam Sodium .ROUTE Ampicillin Sodium/ 0 .STK-MED ONE 10/28 0025 DC Sulbactam Sodium .ROUTE Ampicillin Sodium/ 3,000 MG Q6 10/28 0015 AC 10/28 Sulbactam Sodium IV 1200 Sodium Chloride 100 ML Enoxaparin Sodium 40 MG DAILY 10/28 1000 AC 10/28 SC 0910 Enoxaparin Sodium 0 .STK-MED ONE 10/28 0918 DC SC Ibuprofen 800 MG Q6P PRN 10/28 0015 AC PO Lidocaine 0 .STK-MED ONE 10/27 1956 DC .ROUTE Methadone HCl 90 MG DAILY 10/28 1000 AC 10/28 PO 0910 Methadone HCl 0 .STK-MED ONE 10/28 0909 DC PO Sodium Chloride 1,000 ML Q10H 10/28 0015 AC 10/28 IV 10/28 Sodium Chloride 1,000 ML BOLUS ONE 10/270 DC 10/27 IV 10/27 2228 221 Vancomycin HCl 1,000 MG ONCE ONE 10/28 2100 AC Dextrose/Water 250 ML IV 10/28 215 Vancomycin HCl 1,000 MG ONCE ONE 10/28 0900 DC Dextrose/Water 250 ML IV 10/28 0959 Vancomycin HCl 1,000 MG ONCE ONE 10/27 2030 DC 10/27 Dextrose/Water 250 ML IV 10/27 2128 2100 Past History Medical History Neurological: NONE EENT: NONE Cardiovascular: NONE Respiratory: NONE Gastrointestinal: NONE Hepatic: NONE Renal: NONE Musculoskeletal: NONE Psychiatric: NONE Endocrine: NONE Blood Disorders: NONE Cancer(s): NONE CLINICAL HAEMATOLOGIST/Reproductive: NONE Other Medical Hx: IV drug use opiate dependence Surgical History Pertinent Surgical History: none Family History Relations & Conditions If Any: FATHER (DM). Psychosocial History Where Do You Live? Home Who Do You Live With? parent Services at Home: None Primary Language: Indonesian Smoking Status: Current Some Day Smoker ETOH Use: occasional use Illicit Drug Use: heroin Functional Ability ADLs Independent: dressing, eating, toileting, bathing. Ambulation: independent IADLs Independent: shopping, housework, finances, food prep, telephone, transportation , medication admin. Employment History Employment: Employed Profession/Employer: [employer] Review of Systems Review of Systems: Pain in the right arm. No chills or sweats. No chest pain no dyspnea remainder 12 points negative Exam & Diagnostic Data Vital Signs and I&O Vital Signs Date Time Temp Pulse Resp B/P B/P Pulse O2 O2 Flow FiO2 Mean Ox Delivery Rate 10/28 1213 98.7 84 18 123/74 98 Room Air 10/28 0615 97.1 77 18 116/63 100 Room Air 10/28 0608 97.1 77 18 116/63 97 Room Air 10/28 0024 97.2 82 18 124/66 98 Room Air 10/27 2107 Room Air 10/27 1950 98.5 91 18 128/80 98 Room Air 10/27 1837 98.8 102 15 138/79 98 Room Air Room Air Intake & Output 10/28 1600 10/28 0800 10/28 0000 10/27 1600 10/27 0800 10/27 0000 Intake Total 400 0 Output Total Balance 400 0 Intake, IV 400 Intake, Oral 0 Patient 170 lb 170 lb Weight Weight Reported by Patient Reported by Patient Measurement Method Physical Exam: Gen.: Looks well normal habitus no distress HEENT: Anicteric PERRL EOMI Chest: Nontender normal respiratory excursion and effort. Right arm shows induration and erythema around the elbow to the mid humerus and proximal forearm. Packing was removed. There is no retained purulence. Replacement the packing is performed. Sterile dressing applied. Last 24 Hours of Labs: Laboratory Tests 10/28 10/28 0605 0332 Chemistry Lactic Acid (0.7 - 2.1 mmol/L) < 0.5 L Hematology CBC w Diff NO MAN DIFF REQ WBC (4.8 - 10.8 /CUMM) 11.4 H RBC (4.70 - 6.10 /CUMM) 3.90 L Hgb (14.0 - 18.0 G/DL) 11.9 L Hct (42 - 52 %) 35.3 L MCV (80.0 - 94.0 FL) 90.4 MCH (27.0 - 31.0 PG) 30.5 MCHC (33.0 - 37.0 G/DL) 33.7 RDW (11.5 - 14.5 %) 13.7 Plt Count (130 - 400 /CUMM) 217 MPV (7.4 - 10.4 FL) 7.9 Gran % (42.2 - 75.2 %) 76.1 H Lymphocytes % (20.5 - 51.1 %) 14.4 L Monocytes % (1.7 - 9.3 %) 7.3 Eosinophils % (0 - 5 %) 1.8 Basophils % (0.0 - 2.0 %) 0.4 Absolute Granulocytes (1.4 - 6.5 /CUMM) 8.7 H Absolute Lymphocytes (1.2 - 3.4 /CUMM) 1.6 Absolute Monocytes (0.10 - 0.60 /CUMM) 0.8 H Absolute Eosinophils (0.0 - 0.7 /CUMM) 0.2 Absolute Basophils (0.0 - 0.2 /CUMM) 0 10/27 10/27 2238 2212 Chemistry Lactic Acid Cancelled Toxicology Urine Opiates Screen (>2000 NG/ML) > 4000.00 H Methadone Screen (>300 NG/ML) > 735 H Barbiturate Screen (>200 NG/ML) < 60 Ur Phencyclidine Scrn (>25 NG/ML) < 6.00 Amphetamines Screen (>1000 NG/ML) < 100 U Benzodiazepines Scrn (>200 NG/ML) < 85 Urine Cocaine Screen (>300 NG/ML) < 50 Urine Cannabis Screen (>50 NG/ML) < 5.00 10/27 1943 Chemistry Sodium (137 - 145 mmol/L) 139 Potassium (3.5 - 5.1 mmol/L) 4.2 Chloride (98 - 107 mmol/L) 96 L Carbon Dioxide (22 - 30 mmol/L) 29 Anion Gap (5 - 16) 14 BUN (9 - 20 mg/dL) 14 Creatinine (0.7 - 1.2 mg/dL) 1.0 Estimated GFR (>60 ml/min) > 60 BUN/Creatinine Ratio (7 - 25 %) 14.0 Glucose (65 - 99 mg/dL) 103 H Lactic Acid (0.7 - 2.1 mmol/L) 0.8 Calcium (8.4 - 10.2 mg/dL) 9.3 Total Bilirubin (0.2 - 1.3 mg/dL) 0.2 AST (17 - 59 U/L) 19 ALT (21 - 72 U/L) 29 Alkaline Phosphatase (< 127 U/L) 82 C-Reactive Prot, Quant (<1.0 mg/dL) > 9.0 H Total Protein (6.3 - 8.2 g/dL) 7.6 Albumin (3.5 - 5.0 g/dL) 4.4 Globulin (1.9 - 4.2 gm/dL) 3.2 Albumin/Globulin Ratio (1.1 - 2.2 %) 1.4 Hematology CBC w Diff NO MAN DIFF REQ WBC (4.8 - 10.8 /CUMM) 13.7 H RBC (4.70 - 6.10 /CUMM) 4.38 L Hgb (14.0 - 18.0 G/DL) 12.9 L Hct (42 - 52 %) 39.4 L MCV (80.0 - 94.0 FL) 90.0 MCH (27.0 - 31.0 PG) 29.5 MCHC (33.0 - 37.0 G/DL) 32.8 L RDW (11.5 - 14.5 %) 13.7 Plt Count (130 - 400 /CUMM) 257 MPV (7.4 - 10.4 FL) 7.9 Gran % (42.2 - 75.2 %) 83.0 H Lymphocytes % (20.5 - 51.1 %) 10.4 L Monocytes % (1.7 - 9.3 %) 5.8 Eosinophils % (0 - 5 %) 0.8 Basophils % (0.0 - 2.0 %) 0 Absolute Granulocytes (1.4 - 6.5 /CUMM) 11.3 H Absolute Lymphocytes (1.2 - 3.4 /CUMM) 1.4 Absolute Monocytes (0.10 - 0.60 /CUMM) 0.8 H Absolute Eosinophils (0.0 - 0.7 /CUMM) 0.1 Absolute Basophils (0.0 - 0.2 /CUMM) 0 Serology Hepatitis A IgM Ab (NONREACTIVE) NONREACTIVE Hep Bs Antigen (NONREACTIVE) NONREACTIVE Hep B Core IgM Ab Conf (NONREACTIVE) NONREACTIVE Hepatitis C Antibody (NONREACTIVE) NONREACTIVE HIV 1&2 Ab Western Blot (NONREACTIVE) NONREACTIVE Assessment/Plan Assessment/Plan Subcutaneous abscess related to IV drug abuse. Abscess has been adequately drained by the emergency room physicians. Local wound cares with daily packing changes can be performed as an outpatient. Antibiotic per primary team. Consult Acknowledgment - Thank you for your consult request.
--- NOTE | 2017-10-29 09:56 | Discharge Summary ---
Visit Information Visit Dates Admission Date: 10/27/17 Discharge Date: 10/28/17 Hospital Course Course Attending Physician: Sofie Sanches MD Primary Care Physician: Corina VAZQUEZ,Noe [place] [facility] Course: The patient is a 27-year-old male with past medical history of IV drug abuse and opiate dependence. He presented to [facility] ED on 10/27 with complaint of right arm swelling redness and pain. The patient was in usual state of health until when he injected heroin in the right arm. On Wednesday a small bump developed at the site of injection. Ever since then the bump has been becoming bigger, red and painful. Patient reports a burning kind of pain. Yesterday patient visited urgent care at [facility] and was prescribed Bactrim. He is coming today without any relief, reports worsening of swelling and edema and pain. Denies fevers and chills. The patient has been using IV heroin for past 5 years, he quit for 2 years and restarted past 2 months. He uses heroin 2 times a week. He is right-handed and usually uses left-sided for injection. It is the first time he has used his right arm. Reports no infection in the past, denies MRSA history however the past pathology report in [facility] is positive for MRSA. Patient reports taking methadone 90mg from [facility] for past 4 months. Denies cocaine PCP and marijuana use. IN THE ED: -VS HR 102, THE REST WNL -Pertinent labs WBC count 13.7, H&H 12.9/39.4, CRP >9. U tox positive for opiates and methadone. -Xray of right elbow shows: Diffuse soft tissue swelling but no acute bony abnormality or joint effusion. -In ED patient underwent incision and drainage and 15-20 mL of purulent discharge was drained and sent for cultures. He also received 1 L of normal saline at 1 dose of vancomycin. Blood cultures were also drawn. Patient is being admitted to general medicine floor and is being evaluated and treated for following conditions: # Sepsis 2/2 to Right arm/forearm cellulitis with abscess over ante-cubital fossa Patient is presenting with abscess status post I&D in ED after IV heroin injection. He has surrounding erythema that is extending above and below the abscess area. He meets the SIRS criteria with elevated heart rate and elevated white blood cell count. -Follow blood cultures and culture of purulent discharge from I and D which after patient left, came back as negative. -Started patient on vancomycin 1g daily in context of previous MRSA history -We added Unasyn 3mg q6h for anaerobes and gram negative coverage -Surgical consult with Dr. Thomas OF the AFTERNOON - HE HAD SEEN THE PATIENT AND ACCORDING TO PATIENT AND NURSE, OFFERED NO SURGICAL INTERVENTION, HAS NOT YET LEFT A NOTE IN TIME PATIENT DECIDED TO LEAVE AMA AT 2:30 PM. -Surgical note left after patient left stated: Abscess has been adequately drained by the emergency room physicians. Local wound cares with daily packing changes can be performed as an outpatient. Antibiotic per primary team. -Right upper extremity U/S RULED out DVT/superficial thrombophlebitis #IV drug abuse and opiate dependence. -CONFIRMED methadone dose from [facility] 90MG -Counseling regarding IV drug abuse -We would have considered TTE IF blood cultures were positive -NEGATIVE HIV and hepatitis panel -Pain management with non-narcotics #AFTER HEARING THAT THERE WOULD BE NO SURGICAL INTERVENTION PATIENT SIGNED OUT AMA AT 2:30 PM EVEN AFTER WE TOLD HIM HE WOULD REQUIRE IV ABX. HE REFUSED WAITING FOR US TO PREPARE PO ANTIBIOTIC PRESCRIPTION. HE WILL RETURN IF ISSUES WORSEN WITH ARM. MOTHER PICKED HIM UP. #FC/DVT prophylaxis with Lovenox/regular diet Allergies: Coded Allergies: No Known Allergies (10/27/17) Disposition Summary Disposition Principal Diagnosis: right arm abscess meeting SIRS criteria Additional Diagnosis: na Discharge Disposition: home or self care Discharge Instructions General Discharge Information Code Status: Full Code Patient's Diet: regular Patient's Activity: as tolerated Follow-Up Instructions/Appts: please see pcp in one week Copies To: Corina VAZQUEZ,Noe [place]
== END 2017-10-28 15:29 | disposition left against medical advice (07) | DRG 383 ==
LOC: ERH 18:25 → ERHI 21:24 → ENRESERV 10-28 13:37 → ERHI 10-28 15:29
PROVIDERS: Internal Medicine; Physician Assistant Medical
PROC: 0H9DXZZ Drainage of Right Lower Arm Skin, External Approach (ICD-10-PCS; principal; 2017-10-28)
DX: L03.113 Cellulitis of right upper limb (principal); F11.20 Opioid dependence, uncomplicated; F17.200 Nicotine dependence, unspecified, uncomplicated
CPT/HCPCS: ERO; 73080-RT; 76881; 80307; 87040; 87070; 87389; 96361; 96374; J1650; J3370; J7060